=== PATIENT | female | born 1980 | race African-American/Black ===

== ENCOUNTER 2018-10-11 17:44 | Emergency (ER) | payer MEDICAID ==
[~2018-10-11] VITALS: Ht 167.6 cm; Wt 67.0 kg
[2018-10-11 17:51] VITALS: BP 141/93
[2018-10-11] MEDS ORDERED: IBUPROFEN 800MG TABLET PO ONE (18:15)
[2018-10-11] MEDS ORDERED: LIDOCAINE HCL/PF 1% 10 MG/ML 5ML VIAL IJ ONE (18:15)
[2018-10-11] MEDS ORDERED: BACITRACIN ZINC OINT UDPKT TOP ONE (18:15)
[2018-10-11] MEDS ORDERED: TETANUS, DIPHTHERIA, PERTUSSIS VAC/PF 0.5ML (>7YR OLD) IM ONE (18:15)
== END 2018-10-11 20:10 | disposition home or self-care (01) ==
LOC: ER 17:44
DX: S61.411A Laceration without foreign body of right hand, initial encounter (principal); W25.XXXA Contact with sharp glass, initial encounter; Y93.89 Activity, other specified; Y92.89 Other specified places as the place of occurrence of the external cause; Y99.8 Other external cause status
CPT/HCPCS: 12002; 73130; 90471; 90715; 99284; A4217; J3490; Z7610

== ENCOUNTER 2018-10-19 12:22 | Emergency (ER) | payer MEDICAID ==
[~2018-10-19] VITALS: Ht 165.1 cm; Wt 66.0 kg
[2018-10-19 13:27] VITALS: BP 150/90
== END 2018-10-19 14:09 | disposition home or self-care (01) ==
LOC: ER 12:51
DX: Z48.00 Encounter for change or removal of nonsurgical wound dressing (principal)
CPT/HCPCS: 99283

== ENCOUNTER 2018-10-31 10:26 | Emergency (ER) | payer MEDICAID ==
[~2018-10-31] VITALS: Ht 165.1 cm; Wt 68.8 kg
[2018-10-31 10:38] VITALS: BP 132/91
== END 2018-10-31 11:22 | disposition home or self-care (01) ==
LOC: ER 10:26
DX: Z48.02 Encounter for removal of sutures (principal)
CPT/HCPCS: 99281; Z7610